=== PATIENT | male | born 1945 | race Caucasian/White ===

== ENCOUNTER 2018-10-06 06:22 | Day surgery (SDC) | payer OTHER ==
--- NOTE | 2018-10-05 15:58 | RAD REPORT ---
EXAM DESCRIPTION: RAD - Chest Pa And Lat (2 Views) - 10/05/2018 3:34 pm CLINICAL HISTORY: Preop chest, pending hernia surgery COMPARISON: None. TECHNIQUE: PA and lateral views of the chest were obtained. FINDINGS: The lungs are normal volume. Diaphragm is flattened. Scattered fibrotic lung changes evide nt. No superimposed failure, infiltrate or mass. Heart size is normal and central vasculature is wi thin normal limits. No pleural effusion or pneumothorax seen. No acute bony finding noted. No aort ic abnormality. IMPRESSION: Mild fibrotic lung change with no acute cardiopulmonary finding. Suspected mild or early COPD changes.
[2018-10-05 16:44] LABS: Absolute Lymphocytes (CBC) 1.6 K/uL (0.7-4.9); Absolute Monocytes 0.7 K/uL (0.1-1.3); Absolute Neutrophil 5.2 K/uL (1.8-8.0); Basophils % 0.5 % (0-1.3); Eosinophils % 0.8 % (0-4.4); Hematocrit 45.6 % (39.6-49.0); RBC Red Blood Cell Count 4.74 M/uL (4.33-5.43)
[2018-10-05 17:07] LABS: Potassium 3.5 mmol/L (3.5-5.1)
[2018-10-06] MEDS ORDERED: Ringers Lactate 1,000 ML IV ONE (07:18)
[2018-10-06] MEDS ORDERED: CEFAZOLIN 1GM (PREMIX IV) 1 GM/50 ML BAG ONE (07:18)
[2018-10-06] MEDS ORDERED: BUPIVACAINE 0.5% PF 10 ML VIAL ONE (07:41)
[2018-10-06] MEDS ORDERED: PROPOFOL 200 MG/20 ML VIAL IV ONE (07:43)
[2018-10-06] MEDS ORDERED: MIDAZOLAM HCL 2 MG/2 ML INJ ONE (07:43)
[2018-10-06] MEDS ORDERED: FENTANYL CITR 100 MCG/2 ML ONE (07:44)
[2018-10-06] MEDS ORDERED: LIDOCAINE 2% MPF 5 ML VIAL ONE (07:44)
--- NOTE | 2018-10-06 07:45 | EKG ---
Test Date: 2018-10-05 Test Time: 15:26:41 Real Estate Broker: HARPREET MEASUREMENT RESULTS: Intervals: Rate: 78 [place]: QRSD: 96 QT: 384 QTc: 437 [place]: P: MN: QRS: 45 T: 52 INTERPRETIVE STATEMENTS: Atrial fibrillation Minimal voltage criteria for LVH, may be normal variant Abnormal ECG No previous ECG available for comparison Electronically Signed On 10-06-18 07:44:33 GENERAL SERVICE TECHNICIAN by Arik Jesus
[2018-10-06] MEDS ORDERED: ONDANSETRON 4 MG/2 ML VIAL ONE (07:46)
[2018-10-06] MEDS ORDERED: ROCURONIUM 50 MG/5 ML VIAL IV ONE (07:47)
[2018-10-06] MEDS ORDERED: GLYCOPYRROLATE 0.2 MG/ML SYR ONE (07:47)
[2018-10-06] MEDS ORDERED: NEOSTIGMINE 1 MG/ML -5 ML SYRINGE ONE (08:09)
--- NOTE | 2018-10-06 08:50 | P.BOP ---
Preoperative diagnosis: Tender large right inguinal hernia Postoperative diagnosis: same Primary procedure: Open repair of Tender large right inguinal hernia with mesh Estimated blood loss: <10cc Specimen: hernia sac Findings: large right inguinal hernia Anesthesia: General Complications: None Implants: medium mesh sheet and plug Transferred to: Recovery Room Condition: Good
[2018-10-06] MEDS ORDERED: MORPHINE 4 MG/ML SYR ONE (09:15)
--- NOTE | 2018-10-06 10:09 | EKG ---
Test Date: 2018-10-06 Test Time: 07:05:49 Tank Pumper Panelboard: GUTIERREZ MEASUREMENT RESULTS: Intervals: Rate: 77 ND: QRSD: 96 QT: 394 QTc: 445 [place]: P: ND: QRS: 46 T: 47 INTERPRETIVE STATEMENTS: Atrial fibrillation Minimal voltage criteria for LVH, may be normal variant Abnormal ECG Compared to ECG 10/05/2018 15:26:41 No significant changes Electronically Signed On 10-06-18 10:09:09 KITCHEN RUNNER by Arik Jesus
[2018-10-06] MEDS ORDERED: CODEINE 30MG/APAP 300MG TAB ONE (10:13)
[2018-10-06] MEDS ORDERED: HYDROCODONE/APAP 10/325 TAB ONE (10:21)
--- NOTE | 2018-10-06 19:22 | OP ---
Date of Procedure: 10/06/2018 Surgeon: Kieran Mi MD Postoperative Diagnosis: Large tender right inguinal hernia. Postoperative Diagnosis: Large tender right inguinal hernia. Procedure: Open repair of large right inguinal hernia with mesh. Anesthesia: General plus local. Implant: A mesh plug and sheath medium. Findings: As above. Indications: This is the case of a 72-year-old patient, who came to us with a large right inguinal h ernia. The benefits, alternatives, and risks of repair with mesh fully explained to the patient, whi ch include but not limited to infection, bleeding, damage to adjacent structures, anesthesia complica tions, recurrence, chronic numbness, chronic pain, testicular damage, adhesions, [place], and even . He also understands this may not relieve any symptoms. He might need more than one surgical interve ntion. He was also explained the most likely use of mesh placement with the pros and cons of mesh pl acement. He understood. He did allow me to use mesh. Description Of Procedure: The patient was brought to the operating room, placed in supine position. Time-out was called. Right inguinal and abdominal area was prepped and draped in sterile fashion. Marcaine 0.5% injected for local anesthetic, followed by sharp incision of skin in the right inguinal region. Incision was carried down to Zaid's fascia, which was opened under direct vision. Beef Cattle Specialist al oblique aponeurosis was identified opened along the fibers to meet the superficial inguinal ring. Ilioinguinal nerve and iliohypogastric nerve were identified and protected behind the external obliq ue aponeurosis. Charlotte placed around the spermatic cord. Cremasteric fibers were carefully opened. Hernia sac was identified. from the spermatic cord. Those structures were preserved. H ernia sac was opened. Patient placed in Trendelenburg position. We made sure there were no intestin es in between. Then, we twisted the hernia sac and suture ligated twice with Prolene stitches. We p laced a mesh plug in the deep inguinal ring and secured that in place with VersaTack. Once again ernestine ing sure the spermatic cord structures are not damaged. Then, after that, I placed a mesh sheet in t he inguinal canal securing that to the pubic tubercle, shelving edge of the inguinal ligament, transv ersalis fascia, and the tail looped around the spermatic cord without strangulation. The area was ir rigated. No bleeding. At that moment, I proceeded to bring the ilioinguinal nerve and iliohypogastr ic nerve back into the inguinal canal, reconstructed the superficial inguinal ring with Prolene and c losed the external oblique aponeurosis making sure there is no nerve involved. The area was irrigate d. The Zaid's fascia was closed with 3-0 chromic and skin with irvin. Sponge count and instrume nt counts were correct. The patient tolerated the procedure well. The patient was sent to recovery in stable condition. SCARLET/AMANDA Voice ID: [id number] Report ID: [id number]
--- NOTE | 2018-10-06 19:22 | DS ---
Date of Discharge: 10/06/2018 Diagnosis: Tender large right inguinal hernia. Procedure: Open repair of tender large right inguinal hernia with mesh. Disposition: Home. Activity: As tolerated. No heavy lifting. Followup: Follow up in my office in 1 week. Call for appointment [phone]. Medications: See orders. SCARLET/AMANDA Voice ID: [id number] Report ID: [id number]
== END 2018-10-06 11:57 | disposition home or self-care (01) ==
LOC: OR 06:22
PROVIDERS: ATTEND Surgery
PROC: 0YU50JZ Supplement Right Inguinal Region with Synthetic Substitute, Open Approach (ICD-10-PCS; principal; 2018-10-06 07:30)
DX: K40.90 Unilateral inguinal hernia, without obstruction or gangrene, not specified as recurrent (principal)
CPT/HCPCS: 36415; 49505; 71046; 80048; 85025; 88302; 93005 ×2; J0690; J2250; J2405; J2704; J2710; J3010

== ENCOUNTER 2018-11-22 14:19 | Inpatient (IN) | payer OTHER ==
[2018-11-22] MEDS ORDERED: ACETAMINOPHEN 500 MG TAB PO PRN (15:03)
[2018-11-22 15:44] LABS: Absolute Lymphocytes (CBC) 1.2 K/uL (0.7-4.9); Absolute Monocytes 1.2 K/uL (0.1-1.3); Absolute Neutrophil 5.8 K/uL (1.8-8.0); Basophils % 0.5 % (0-1.3); Eosinophils % 0.3 % (0-4.4); Hematocrit 41.5 % (39.6-49.0); Lymphocytes % 14.5 % (15.3-44.8); Monocytes % 14.7 % (3.3-12.3); RBC Red Blood Cell Count 4.29 M/uL (4.33-5.43)
[2018-11-22 15:54] LABS: Albumin 3.3 g/dL (3.4-5.0); Bilirubin Total 0.7 mg/dL (0.2-1.0); Potassium 3.5 mmol/L (3.5-5.1); Protein, Total 7.3 g/dL (6.4-8.2)
[2018-11-22] MEDS ORDERED: PNEUMOCOCCAL VACCINE 0.5 ML IMVAC ONE (16:00)
[2018-11-22] MEDS: NACHLORIDE 0.45% 1,000 ML IV SCH ×2 (16:00→21:50)
[2018-11-22 16:57] VITALS: BMI 23.6
[2018-11-22] MEDS: PIPER/TAZO/NS 3.375gm 3.375 GM/100 ML BAG IV SCH (17:00)
--- NOTE | 2018-11-22 18:02 | RAD REPORT ---
EXAM DESCRIPTION: CT - Abdomen Pelvis W Contrast - 11/22/2018 5:42 pm CLINICAL HISTORY: Abdominal pain. Urinary tract infection COMPARISON: None. TECHNIQUE: Computed axial tomography of the abdomen and pelvis was obtained. 100 cc Isovue-300 is ad ministered intravenously. Oral contrast was given. All CT scans are performed using dose optimization technique as appropriate and may include automated exposure control or mA/KV adjustment according to patient size. FINDINGS: The liver, spleen, pancreas, adrenals and kidneys appear unremarkable. The appendix is normal caliber. There is no evidence of diverticulitis A 6.1 centimeter fluid-filled structure abuts the left aspect of the bladder which may represent a di verticulum. It contains a 6 millimeter calculus. Postsurgical changes of a right inguinal hernia repair are present. A 2.1 x 1.1 centimeter fluid collection lies within the anterior subcutaneous tissues of right groin. Prostate gland is mildly to moderately enlarged IMPRESSION: 2.1 x 1.1 centimeter fluid collection within the anterior subcutaneous tissues of the r ight colon may represent a small abscess or hematoma. 6.1 centimeter fluid collection abutting the left aspect of the bladder may represent a diverticulum. It contains a 6 millimeter calculus
[2018-11-22] MEDS: LISINOPRIL 20 MG TAB PO SCH (21:48)
[2018-11-22] MEDS: TAMSULOSIN 0.4 MG SR CAP PO SCH (21:49)
[2018-11-22] MEDS: ATORVASTATIN 10 MG TAB PO SCH (21:50)
[2018-11-23] MEDS: PIPER/TAZO/NS 3.375gm 3.375 GM/100 ML BAG IV SCH ×3 (00:24→16:51)
[2018-11-23 04:00] LABS: Urine Appearance CLOUDY; Urine Bilirubin NEGATIVE (NEG); Urine Blood 2+ (NEG); Urine Color ORANGE; Urine Glucose NEGATIVE (NEG); Urine Protein TRACE (NEG); Urine Specific Gravity >=1.030 (1.005-1.030)
[2018-11-23 04:19] LABS: Urine Bacteria <20 /HPF (NONE SEEN); Urine Culture Reflex Order NOT NEEDED
[2018-11-23 04:20] LABS: Urine RBC 20-50 /HPF (NONE SEEN)
[2018-11-23] MEDS ORDERED: LISINOPRIL 20 MG TAB PO SCH (09:00)
[2018-11-23] MEDS: ASPIRIN 81 MG CHEWABLE TABLET PO SCH (10:32)
[2018-11-23] MEDS: ENOXAPARIN 30 MG/0.3 ML SQ SCH (10:33)
[2018-11-23] MEDS: NACHLORIDE 0.45% 1,000 ML IV SCH (16:51)
--- NOTE | 2018-11-23 20:50 | CON ---
History Of Present Illness: [place] He states he was doing well up until 1 week ago, developed a headache that lasted all night and some fevers and chills. He called Dr. Akhtar, his primary care and when to see him the next day on , he was also complaining of some dysuria. Dr. Akhtar did a urine test in the office that was positive for infection and gave him Cipro for 10 days. On Thursday, the headache got better. Over the weekend it has gotten better, but it has kind of waxed and waned all week long, he was not feeling good, so he called Dr. Akhtar on Thursday, who decided to get him admitted last night for IV antibiotics and now on IV Zosyn. He had a CT scan showing that there is a 6 cm left-sided bladder diverticulum containing a 6 mm stone. He has some postsurgical changes in the right inguinal hernia with a fluid collection, 2 x 1 cm. Does not appear to be infected on physical exam. The patient denies any lower urinary symptomatology prior to that, has no frequency, no urgency, no hematuria, no straining. He has nocturia 1-2 only. There is some decrease in his force of stream, but nothing major per the patient. He is not taking Flomax. He believes he may have had a PSA in Dr. Akhtar's office in the past. He says he has been feeling better over the last 24 hours since he has been in the hospital on IV Zosyn. Urine cultures growing 100,000 gram-negative rods. Culture and sensitivities pending. Past Medical History: Hypertension, cholesterol. Medications: He is on medication for his cholesterol, Lipitor, and on lisinopril for his blood pressure. Allergies: NO KNOWN DRUG ALLERGIES. Past Surgical History: Right inguinal hernia repair 2 months ago. Social History: He chews tobacco, but does not smoke. He does not drink. He does not do any other drugs. Family History: His mother had coronary artery disease. Review of Systems: Essentially negative. Physical Examination: Vital Signs: 98.7, 83, 18, 149/88, sats. General Appearance: Well-developed male in no acute distress. HEENT: Atraumatic, normocephalic. Lungs: Clear. Heart: S1, S2. Abdomen: Soft. Nontender. : Both testicles descended normal. Phallus descended normal. MARK deferred for now. Extremities: Normal range of motion. Laboratory Studies: Reviewed. White count normal at 8.3, H and H are 14 and 42 , platelet 202. Chemistry; sodium 142, potassium 3.5, chloride 109, carbon dioxide 25, BUN 18, creatinine 0.85, GFR 89, glucose 101, calcium 8.8, total bilirubin 0.7, AST 45, ALT 63. Someone did a PSA screen and it was high at 12, but he has an active infection right now, so this does not count. His urine test did show cloudy urine, 2+ blood, positive nitrite, positive esterase, rbc 20-50, wbc greater than 50. Assessment: Urinary tract infection. History of 6 cm bladder diverticulum with a stone. This is most likely infected. Currently, the patient is voiding well. I would like to possibly avoid catheterizing the patient at this time and go with the antibiotics. We will wait for the final culture cup to come back. If the culture shows that he is sensitive to Cipro, then he may need catheter drainage of the bladder. If the culture is resistant to Cipro, then we will go with sensitivity and see how he does clinically. Eventually, he will need a cysto. We could possibly remove the bladder calculi from the diverticulum, but I do not recommend a diverticulectomy surgery at this point. That will be a big surgery, and I do not believe it is clinically necessary. The patient has done well up to this point. SANTI/AMANDA Voice ID: [id number] Report ID: [id number] PRATIMA
[2018-11-23] MEDS: LISINOPRIL 20 MG TAB PO SCH (21:22)
[2018-11-23] MEDS: ATORVASTATIN 10 MG TAB PO SCH (21:23)
[2018-11-23] MEDS: TAMSULOSIN 0.4 MG SR CAP PO SCH (21:23)
[2018-11-24] MEDS: NACHLORIDE 0.45% 1,000 ML IV SCH ×2 (00:31→07:27)
[2018-11-24] MEDS: PIPER/TAZO/NS 3.375gm 3.375 GM/100 ML BAG IV SCH ×2 (00:31→08:06)
--- NOTE | 2018-11-24 01:00 | HP ---
Date of Admission: 11/22/2018 Chief Complaint: Fever, chills, and rigors. History Of Present Illness: A 73-year-old male who was seen 3 days prior to admission for fever, chi lls, and rigors. He was found to have evidence of urinary tract infection. He was given Cipro. The patient returned on Thursday because of continued fever, chills, and rigors. In view of failure of or al antibiotic and there are other possibilities for non-response, the patient was admitted for IV ant ibiotic therapy and needed workup including urinary obstruction as well as kidney stones. Past Medical History: Positive for hypertension. Personal History: Nonsmoker. Home Medicines: Please refer to the chart. Review of Systems: No history of nausea or vomiting. Physical Examination: General: Revealed a 73-year-old male, febrile, 99 in the office. HEENT: Otherwise negative. Neck: Supple. JVD negative. Chest: Clear. Heart: Regular. Abdomen: Tender in the suprapubic area. Bowel sounds present. Laboratory Data: White count at admission was 8.3. Chem profile: Alkaline phosphatase 196. PSA 12 .0. Assessment: 1.Prostatitis, nonresponsive to Cipro. 2.Bladder diverticulum and stone. 3.Hypertension. 4.Hyperlipidemia. Plan: IV Zosyn pending the urine culture. Urology consultation is done. REBECCA/AMANDA Voice ID: [id number]
[2018-11-24] MEDS: ASPIRIN 81 MG CHEWABLE TABLET PO SCH (08:06)
[2018-11-24] MEDS: ENOXAPARIN 30 MG/0.3 ML SQ SCH (08:06)
[2018-11-24 10:04] VITALS: O2SAT 96
[2018-11-24 12:17] VITALS: BP 146/72; TEMP 97.3
--- NOTE | 2018-11-24 18:42 | PN ---
Subjective: The patient is doing better. His temperature is normal. His urine culture shows that h e has E coli resistant to Cipro, however, it is sensitive to Keflex. The patient did change to oral antibiotics. He will be reexamined and if he is stable, he will be discharged home on Keflex, since he has a bladder diverticulum and a stone. The patient may need cystoscopy, however, this will be do ne as an outpatient. REBECCA/AMANDA Voice ID: [id number] Report ID: [id number]
[2018-11-24] MEDS ORDERED: CEPHALEXIN 500 MG CAP PO SCH (21:00)
--- NOTE | 2018-11-24 22:33 | PN ---
Subjective: The patient is feeling well. Objective: Urine culture came back E coli, resistant to Cipro and Levaquin, sensitive to Augmentin, cefazolin, cefotetan, Timentin, pip/tazobactam, meropenem, and amikacin. Assessment: Urinary tract infection, Escherichia coli, sensitive to Augmentin. The patient with juni dder diverticulum on the left with small stone. Plan: Is to send him home on Augmentin 500 p.o. b.i.d. x7 days. Follow up in the office for reggie desir from his insurance for cystoscopy, uroflow and possible stone extraction from the diverticulum. SANTI/AMANDA Voice ID: [id number] Report ID: [id number]
== END 2018-11-24 15:55 | disposition home or self-care (01) | DRG 690 ==
LOC: 4TH 14:31
PROVIDERS: ADMIT Internal Medicine; ATTEND Internal Medicine
DX: N39.0 Urinary tract infection, site not specified (principal); N41.0 Acute prostatitis; B96.20 Unspecified Escherichia coli [E. coli] as the cause of diseases classified elsewhere; Z16.39 Resistance to other specified antimicrobial drug; N32.3 Diverticulum of bladder; N21.0 Calculus in bladder; I10 Essential (primary) hypertension; E78.5 Hyperlipidemia, unspecified; F17.220 Nicotine dependence, chewing tobacco, uncomplicated
CPT/HCPCS: 36415; 74177; 80053; 81001; 85025; 87040; 87077; 87086; 87088; 87186; G0103; J1650; J2543; Q9967

== ENCOUNTER 2019-02-22 10:26 | Day surgery (SDC) | payer OTHER ==
[2019-02-16 09:45] LABS: Urine Appearance CLEAR; Urine Bilirubin NEGATIVE (NEG); Urine Blood 3+ (NEG); Urine Color YELLOW; Urine Glucose NEGATIVE (NEG); Urine Protein 1+ (NEG); Urine pH 6.5 (5.0-7.0)
[2019-02-16 09:47] LABS: Absolute Lymphocytes (CBC) 1.1 K/uL (0.7-4.9); Absolute Monocytes 0.6 K/uL (0.1-1.3); Absolute Neutrophil 3.5 K/uL (1.8-8.0); Basophils % 1.2 % (0-1.3); Eosinophils % 2.1 % (0-4.4); Hematocrit 41.6 % (39.6-49.0); Lymphocytes % 20.2 % (15.3-44.8); MPV 9.9 fL (7.6-11.3); Monocytes % 11.5 % (3.3-12.3); RBC Red Blood Cell Count 4.35 M/uL (4.33-5.43)
[2019-02-16 09:49] LABS: Urine Microscopic Reflex ORDER UMIC
[2019-02-16 09:56] LABS: Protime INR 0.99
[2019-02-16 09:59] LABS: BUN Blood Urea Nitrogen 24 mg/dL (7-18); Bicarbonate 28 mmol/L (21-32); Glucose Level 83 mg/dL (74-106); Potassium 3.9 mmol/L (3.5-5.1); Sodium Level 144 mmol/L (136-145)
[2019-02-16 10:02] LABS: Phosphorus 2.7 mg/dL (2.5-4.9); Uric Acid 4.6 mg/dL (3.5-7.2)
[2019-02-16 10:05] LABS: Urine Bacteria 20-50 /HPF (NONE SEEN); Urine Culture Reflex Order NOT NEEDED; Urine RBC LOADED /HPF (NONE SEEN)
--- NOTE | 2019-02-16 10:25 | RAD REPORT ---
EXAM DESCRIPTION: Supriya Morris (2 Views)02/16/2019 8:55 am CLINICAL HISTORY: Preop/abdominal pain/genitourinary calculus COMPARISON: September 2018 FINDINGS: 7 millimeter nodular opacity overlies the left lung base. Right lung appears clear. The heart is normal size IMPRESSION: 7 millimeter nodular opacity which overlies left base may represent a nipple shadow or pulmonary nodule. It is recommended that the patient have frontal and oblique views of the chest with nipple marker for further evaluation
--- NOTE | 2019-02-16 16:50 | EKG ---
Test Date: 2019-02-16 Test Time: 08:44:39 Form Setter Helper: HARPREET MEASUREMENT RESULTS: Intervals: Rate: 80 [place]: QRSD: 88 QT: 368 QTc: 424 [place]: P: PA: QRS: 35 T: 47 INTERPRETIVE STATEMENTS: Atrial fibrillation Abnormal ECG Compared to ECG 10/06/2018 07:05:49 Left ventricular hypertrophy no longer present Electronically Signed On 02-16-19 16:49:08 CDT by Arik Jesus
--- NOTE | 2019-02-16 17:07 | RAD REPORT ---
EXAM DESCRIPTION: RAD - Chest W Obliques - 02/16/2019 4:55 pm CLINICAL HISTORY: Abnormal x-ray/ possible Pulmonary nodule FINDINGS: Frontal and oblique views of chest obtained. Nipple markers have placed Previously described 7 millimeter nodular opacity overlying the left lung base is shown to represent a nipple shadow
[2019-02-22] MEDS ORDERED: Ringers Lactate 1,000 ML IV ONE (10:53)
[2019-02-22] MEDS ORDERED: GENTAMICIN 80 MG/100 ML BAG 80 MG/100 ML BAG IV ONE (10:53)
--- NOTE | 2019-02-22 10:54 | RAD REPORT ---
EXAM DESCRIPTION: RAD - Abdomen 1 View (KUB) - 02/22/2019 10:47 am CLINICAL HISTORY: ICD N 20.0 preop for genitourinary calculus removal FINDINGS: The bowel gas pattern is unremarkable. Radiopaque calculi within a left bladder diverticulum is not clearly seen on this exam
[2019-02-22] MEDS ORDERED: LIDOCAINE 2% MPF 5 ML VIAL ONE (11:12)
[2019-02-22] MEDS ORDERED: FENTANYL CITR 100 MCG/2 ML ONE (11:12)
[2019-02-22] MEDS ORDERED: PROPOFOL 200 MG/20 ML VIAL IV ONE (11:12)
[2019-02-22] MEDS ORDERED: NA CIT/CITRIC AC 30 ML ORAL UDC ONE (11:14)
[2019-02-22] MEDS ORDERED: MIDAZOLAM HCL 2 MG/2 ML INJ ONE (12:07)
[2019-02-22] MEDS ORDERED: ONDANSETRON 4 MG/2 ML VIAL ONE (12:47)
[2019-02-22 13:07] VITALS: TEMP 97.2
[2019-02-22 14:52] VITALS: BP 138/88; O2SAT 98
== END 2019-02-22 14:56 | disposition home or self-care (01) ==
LOC: OR 10:26
PROVIDERS: ATTEND Urology
PROC: 0VB08ZZ Excision of Prostate, Via Natural or Artificial Opening Endoscopic (ICD-10-PCS; principal; 2019-02-22 12:00)
DX: N40.1 Benign prostatic hyperplasia with lower urinary tract symptoms (principal); R39.12 Poor urinary stream; N21.0 Calculus in bladder; N35.912 Unspecified bulbous urethral stricture, male; N39.0 Urinary tract infection, site not specified; Z01.818 Encounter for other preprocedural examination; E78.00 Pure hypercholesterolemia, unspecified; I10 Essential (primary) hypertension; Z79.899 Other long term (current) drug therapy
CPT/HCPCS: 52601; 93005; 87088; 85025; 80048; 36415; 84100; 85610; 84550; 88300; 88305; 85730; 82360; 74018; 71046; 71048; G0103; J2704; J2250; J3010; J1580; J2405; 81003; 81015; 87086